=== PATIENT | female | born 1970 | race Caucasian/White ===

== ENCOUNTER → 2016-05-16 | Outpatient (CLI) | payer OTHER ==
--- NOTE | 2016-05-16 12:33 | CT ---
CT of the lower extremity, pelvis and bilateral femurs Without Contrast With Multiplanar Reconstructi ons at 1025 hours History: Left hip pain. Osteoarthritis, M16.12. Comparison: None. Technique: Noncontrast axial computed tomographic images of the pelvis and bilateral femurs with sagi ttal, coronal, and multiplanar reconstructions. Dose reduction techniques were utilized. Findings: Severe osteoarthritis in the left hip joints with severe superior joint space narrowing, garcia bchondral sclerosis of the acetabula and superior femoral head region, and cystic erosions of the ant erosuperior acetabular region. No evidence of acute fracture. Previous right total hip arthroplasty. Sclerosis and hypertrophic changes in bilateral sacroiliac jose nts. Slight bilateral patellar lateral tilt. IUD in the uterus. No definite adnexal masses or significant pelvic adenopathy. Impression: 1. Severe osteoarthritis left hip. 2. Previous right total hip arthroplasty. 3. 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
== END ==
LOC: FIMAGING 10:07
PROVIDERS: ATTEND Orthopaedic Surgery
DX: M16.12 Unilateral primary osteoarthritis, left hip (principal); Z96.641 Presence of right artificial hip joint

== ENCOUNTER 2016-05-30 06:05 | Inpatient (IN) | payer OTHER ==
[2016-05-16 11:15] LABS: % IMMATURE GRANULYOCYTES 0.3 % (0.0-1.1); ABSOLUTE IMMATURE GRANULOCYTES 0.02 10^3/uL (0.00-0.10); ADD DIFF? NO; ADD MORPH? NO; ADD SCAN? NO; ATYPICAL LYMPHOCYTE FLAG 30 (0-99); FRAGMENT RBC FLAG 0 (0-99); HEMATOCRIT 38.1 % (38.0-47.0); HEMOGLOBIN 13.1 g/dL (12.6-16.3); LEFT SHIFT FLG 0 (0-99); LIPEMIA HEMOLYSIS FLAG 90 (0-99); MEAN CELL HEMOGLOBIN 32.3 pg (27.9-34.1); MEAN CELL HEMOGLOBIN CONCENTR. 34.4 g/dL (32.4-36.7); MEAN CELL VOLUME 94.1 fL (81.5-99.8); PLATELET CLUMPS FLAG 0 (0-99); PLATELET COUNT 280 10^3/uL (150-400); RED BLOOD CELL COUNT 4.05 10^6/uL (4.18-5.33); RED CELL DISTRIBUTION WIDTH 12.4 % (11.5-15.2)
[~2016-05-30 06:05] MED LIST: ACETAMINOPHEN 325 MG TAB PO ONE; CEFAZOLIN 2 GM/DEXTR 100 ML IV ONE; CHLORHEXIDINE GLUC HIBICLENS 118 ML BTL TP ONE; DEXAMETHASONE 4 MG/ML VIAL IVP ONE; FAMOTIDINE 20 MG TAB PO ONE; ROPI/epiNEPH/KETOROLAC JOINT COCKTAIL IU ONE; TRANEXAMIC ACID 3,000 MG in NS 50 ML IRR ONE
[2016-05-30] MEDS ORDERED: LR 1,000 ML IV ONE (06:53)
[2016-05-30] MEDS ORDERED: LIDOCAINE 1% 5 ML SDV ID PRN (06:53)
[2016-05-30] MEDS ORDERED: SKIN ADHESIVE (DERMABOND) 1 EACH TP ONE (06:59)
[2016-05-30] MEDS ORDERED: TRANEXAMIC ACID 3,000 MG/50 ML BAG IRR ONE (07:00)
[2016-05-30] MEDS ORDERED: ONDANSETRON 4 MG/2 ML VIAL ONE (07:49)
[2016-05-30] MEDS ORDERED: LIDOCAINE 2% 5 ML SDV ONE (07:49)
[2016-05-30] MEDS ORDERED: DEXAMETHASONE 4 MG/ML VIAL ONE (07:49)
[2016-05-30] MEDS ORDERED: PROPOFOL/EMULSION 500 MG/50 ML BOTTLE IV ONE (07:50)
[2016-05-30] MEDS ORDERED: MIDAZOLAM 2 MG/2 ML VIAL ONE ×2 (07:54→09:47)
[2016-05-30] MEDS ORDERED: fentaNYL 100 MCG/2 ML INJ ONE ×3 (08:25→10:42)
[2016-05-30] MEDS ORDERED: PROPOFOL 200 MG/20 ML VIAL ONE (09:08)
[2016-05-30] MEDS ORDERED: MAGNESIUM HYDROXIDE 30 ML UDCUP PO PRN (09:35)
[2016-05-30] MEDS ORDERED: POLYETHYLENE GLYCOL 3350 17 GM PKT PO PRN (09:35)
[2016-05-30] MEDS ORDERED: TEMAZEPAM 15 MG CAP PO PRN (09:35)
[2016-05-30] MEDS ORDERED: ONDANSETRON 4 MG/2 ML VIAL IVP PRN (09:35)
[2016-05-30] MEDS ORDERED: PHARMACY PAIN CONSULT 1 EA MISC PRN (09:35)
[2016-05-30] MEDS ORDERED: diphenhydrAMINE 25 MG CAP PO PRN (09:35)
[2016-05-30] MEDS ORDERED: PROMETHAZINE HCL 25 MG SUPPR PR PRN (09:35)
[2016-05-30] MEDS ORDERED: LACTULOSE 20 GM/30 ML UDCUP PO PRN (09:35)
[2016-05-30] MEDS ORDERED: BISACODYL 10 MG SUPP PR PRN (09:35)
[2016-05-30] MEDS ORDERED: PROMETHAZINE HCL 25 MG/ML INJ IVP PRN (09:35)
[2016-05-30] MEDS ORDERED: DIPHENOXYLATE/ATROPINE LOMOTIL 1 TAB PO PRN (09:35)
[2016-05-30] MEDS ORDERED: ONDANSETRON DISINTEGRATING 4 MG TAB PO PRN (09:35)
--- NOTE | 2016-05-30 09:35 | POSTOPPROG ---
Post Op Note Date of Operation: 05/30/16 Surgeon: Mary Lou Samson Ice Cream Scooper: oscar samson Anesthesiologist: dr. bardales Anesthesia: Spinal Pre-op Diagnosis: left hip OA Post-op Diagnosis: same Indication: left hip pain due to OA that failed conservative measuers Procedure: L RENE ant approach, robot assist Findings: severe hip OA Inf/Abcess present in the surg proc area at time of surgery?: No EBL: 100-500
[2016-05-30] MEDS ORDERED: oxyCODONE IR 5 MG TAB ONE ×2 (09:47→10:42)
[2016-05-30] MEDS ORDERED: HYDROmorphONE/DILAUDID 1 MG/ML SYR ONE (09:47)
[2016-05-30] MEDS ORDERED: LR 1,000 ML IV SCH (10:00)
--- NOTE | 2016-05-30 10:47 | DX ---
AP Pelvis. Reason for examination: Postoperative follow up left hip arthroplasty. Comparison to the prior study August 11, 2014. Findings: Postoperative changes of recent total left hip arthroplasty are noted. The bone alignment i s satisfactory and no complicating process is seen. Stable appearance of the previous right hip arthr oplasty. Incidentally, an IUD is in place. Impression: Recent total left hip arthroplasty.
[2016-05-30] MEDS: ACETAMINOPHEN 325 MG TAB PO SCH ×3 (12:32→23:09)
[2016-05-30] MEDS: CYCLOBENZAPRINE 10 MG TAB PO PRN ×2 (12:40→19:45)
[2016-05-30] MEDS: oxyCODONE IR 5 MG TAB PO PRN ×4 (14:00→23:07)
[2016-05-30] MEDS ORDERED: ceFAZolin 2 GM/DEXTROSE 100 ML IV SCH (14:00)
[2016-05-30] MEDS: ceFAZolin 2 GM in D5W 100 ML IV SCH ×2 (15:13→22:19)
--- NOTE | 2016-05-30 17:25 | DX ---
Intraoperative fluoroscopy during left hip surgery. May 30, 2016. Discussion: 3.1 seconds of intraoperative fluoroscopy utilized by Dr. Linder during left hip surge ry. AP matrix radiograph of the left hip demonstrates a left hip arthroplasty in progress. Impression: 1. Intraoperative fluoroscopy during left hip arthroplasty.
[2016-05-30] MEDS: SENNOSIDES/DOCUSATE SODIUM TAB PO SCH (19:45)
[2016-05-30] MEDS: ASPIRIN 325 MG TAB PO SCH (19:45)
[2016-05-30] MEDS: FAMOTIDINE 20 MG TAB PO SCH (19:46)
[2016-05-31] MEDS: oxyCODONE IR 5 MG TAB PO PRN ×4 (01:59→10:53)
[2016-05-31 04:48] LABS: HEMATOCRIT 34.2 % (38.0-47.0); HEMOGLOBIN 11.7 g/dL (12.6-16.3)
[2016-05-31] MEDS: CYCLOBENZAPRINE 10 MG TAB PO PRN (04:53)
[2016-05-31] MEDS: ACETAMINOPHEN 325 MG TAB PO SCH (04:53)
--- NOTE | 2016-05-31 05:21 | GOP ---
[f rep st] OPERATIVE REPORT DATE OF OPERATION: 05/30/2016 SURGEON: Murphy Linder MD SALES REPRESENTATIVE METALS: PEDRO Marin. ANESTHESIA: Spinal. PREOPERATIVE DIAGNOSIS: Left hip osteoarthritis. POSTOPERATIVE DIAGNOSIS: Left hip osteoarthritis. PROCEDURE PERFORMED: Left total hip arthroplasty. FINDINGS: ESTIMATED BLOOD LOSS: 200 cc. INDICATIONS: The patient has progressively worsening arthritis of the hip which has failed medical management. The patient understands the treatment option including continued non-operative care and has selected surgical intervention. The patient has decided to undergo total hip arthroplasty via the direct anterior approach understanding the risks of the procedure including , but not limited to, neurovascular injury, infection, persistent pain, component wear and loosening, deep venous thrombosis, pulmonary embolism, limb length inequality (including dislocation), and intraoperative fractures. DESCRIPTION OF PROCEDURE: After proper identification of the patient including verification and marking the surgical site, the patient was brought to the operating room and placed in the supine position. All bony prominences were well padded. Anesthesia was induced without complication and intravenous prophylactic antibiotics were administered prior to skin incision. After prepping and draping in the usual sterile fashion, attention was drawn to the contralateral pelvis for attachment of the computer navigation tracker. Three percutaneous incisions were made over the iliac crest and the pelvic tracker was affixed using threaded 3.5 mm pins yielding excellent fixation. Using computer navigation the patient's leg length and topographical pelvic anatomy was registered without complication. Attention was then drawn to surgical exposure of the hip. An incision was made with a #10 Bard Jairo blade starting 3 cm lateral and 3 cm distal to the anterior superior iliac spine measuring 8 cm to 10 cm and coursing distally toward the greater trochanter. The skin and subcutaneous tissues were divided sharply down the fascia lindy. The fascia lindy was incised in line with the skin incision exposing the underlying tensor fascia lindy muscle. This muscle was bluntly elevated from the fascia and the first extracapsular Cobra retractor was placed laterally at the junction of the superior femoral neck and greater trochanter. The lateral femoral circumflex vessels were identified, cauterized and divided with the Aquamantys bipolar cautery. The deep investing fascia of the TFL was divided to allow proper mobilization of the muscle preventing damage during retraction. The reflected head of the rectus femoris muscle was elevated off the anterior hip capsule and a medial Cobra retractor was placed just proximal to the lesser trochanter. The anterior capsulotomy was made sharply from the superolateral acetabulum to the saddle junction of the superior femoral neck and greater trochanter, then coursing inferomedial towards the lesser trochanter. The retractors were then placed in the intracapsular position for femoral neck osteotomy. Corresponding to preoperative templating the osteotomy was made with the oscillating saw protecting the greater trochanter and soft tissues. The femoral head was removed from the acetabulum with a corkscrew and confirmed to be severely arthritic with exposed bone, deformity and osteophytes. Similar finding were confirmed in the acetabulum. The Arch table extension was then placed in 40 degrees external rotation. Attention was then drawn to the acetabular preparation. After placement of the anterior and posterior Cobra retractors outside the labrum and intrascapular the circumferential labrum was removed sharply. The foveal contents were then removed and hemostasis obtained with cautery. The anatomy of the acetabulum was then registered using computer navigation. The first reamer selected was sized using the removed femoral head. Reaming began with robotic assist at 40 degrees of abduction and 20 degrees of anteversion using computer navigation. Reaming ceased 0 mm less than the definitive acetabular component. The final acetabular component was inserted using the computer to achieve proper orientation yielding excellent purchase and stability in the acetabulum. The final acetabular liner was then placed and its seating confirmed. Attention was then turned to the femur. The Arch table extension was placed in extension and adduction delivering the osteotomized femoral neck into the wound. A 2-pronged femoral elevator was placed at the calcar and another at the tip of the greater trochanter. The posterolateral capsule was released with cautery allowing mobilization of the femur lateral and anterior for preparation. The external rotators were visualized and preserved. A curette and rongeur were used to open the starting point for broaching. Serial broaching started with the #0 broach and ended with the broach that exhibited excellent fit in the proximal femur. A change in pitch during mallet strikes was accompanied by the inability to advance the broach any further. The trial reduction was performed and fluoroscopic navigation was utilized to check limb length. Adjustments were made to equalize limb length accordingly. After the final trials were accepted they were removed and the wound was copiously lavaged. The femoral component was seated to the same depth as the final broach and the femoral head was impacted onto the clean trunnion. The hip was then reduced for the final time and once more fluoroscopic navigation used to check that limb length equality was achieved. The wound was irrigated and closed in layers, the fascia lindy with 2-0 Quill, the subcutaneous tissue with a 2-0 Quill, and the skin with Dermabond, including the small incisions for computer navigation. Sterile dressings were applied. Final sharps and sponge counts were accurate. The patient was then transferred to a hospital bed and brought to the recovery room in stable condition. IMPLANTS: Accolade II size 5 x 127, acetabular component, 54 mm Tritanium. The liner is a Trident X3 32 mm. The head is a Biolox Delta 32 mm -4. /[id number]/MODL MTDD
[2016-05-31 07:23] VITALS: BP 106/49; PULSE 53; RESP 14; TEMP 97.9
[2016-05-31] MEDS: FAMOTIDINE 20 MG TAB PO SCH (08:05)
[2016-05-31] MEDS: SENNOSIDES/DOCUSATE SODIUM TAB PO SCH (08:05)
[2016-05-31] MEDS: ASPIRIN 325 MG TAB PO SCH (08:05)
[2016-05-31] MEDS ORDERED: FLUoxetine 20 MG CAP PO SCH (09:00)
--- NOTE | 2016-05-31 09:21 | SOAPPROG ---
SOAP Progress Note Assessment/Plan: Assessment: Patient is doing well POD 1 s/p L RENE 1.Pain management: pain is well controlled on oral pain meds 2.Anemia: level is expected initially postop. Asymptomatic. Cont to monitor for symptoms 3.VTE ppx: recommend aspirin 325mg daily. Cont JUDY kaleb and SCD 4. d/c planning: d/c to home today pending release from PT. 5. muscle spasms: flexeril script sent to patient's pharmacy. 6. postop urinary retention: resolved today. Plan: 05/31/16 09:20 Subjective: Maddison is doing well this morning. denies SOB, chest pain and N/V. states flexeril worked well for her and would like a script. Objective: Vital Signs Temp Pulse Resp BP Pulse Ox 36.6 C 53 L 14 106/49 L 97 05/31/16 07:22 05/31/16 07:22 05/31/16 07:22 05/31/16 07:22 05/31/16 07:22 Laboratory Results 05/31/16 04:20 05/30/16 05/31/16 06/01/16 05:59 05:59 05:59 Intake Total 3965 Output Total 3880 700 Balance 85 -700 LLE: incision dressing is clean and dry, NVI, +pf/df ICD10 Worksheet Patient Problems: Problems Problem Status Diagnosed Primary localized osteoarthritis of left hip Acute Osteoarthritis of hip Acute
[2016-05-31 12:00] VITALS: O2SAT 98
--- NOTE | 2016-05-31 12:12 | GDS ---
[f rep st] DISCHARGE SUMMARY ADMISSION DIAGNOSIS: Left hip osteoarthritis. DISCHARGE DIAGNOSIS: Left hip osteoarthritis. PROCEDURE: Left total hip arthroplasty, robot assisted. VTE PROPHYLAXIS: Aspirin recommended for 3 weeks daily. BRIEF DESCRIPTION OF HOSPITAL STAY: Patient was admitted for an elective joint arthroplasty. The pa kenroynt tolerated the procedure well and has passed physical therapy. The patient was given appropriat e antibiotic prophylaxis and venous thromboembolism prophylaxis. The patient's pain was well control led on oral pain medication, patient was holding down food, and had urinated. Decision was made to d ischarge the patient. The patient was given post-operative prescriptions pre-operatively. PLANS: Please follow up as scheduled at Dr. Linder's office on June 21 at 9:30 a.m. /[id number]/MODL
== END 2016-05-31 11:23 | disposition home or self-care (01) | DRG 470 ==
LOC: F3N 06:05
PROVIDERS: ADMIT Orthopaedic Surgery; ATTEND Orthopaedic Surgery
PROC: 0SRB04Z Replacement of Left Hip Joint with Ceramic on Polyethylene Synthetic Substitute, Open Approach (ICD-10-PCS; principal; 2016-05-30 08:15)
PROC: 8E0Y0CZ Robotic Assisted Procedure of Lower Extremity, Open Approach (ICD-10-PCS; principal; 2016-05-30 08:15)
DX: M16.12 Unilateral primary osteoarthritis, left hip (principal); R33.9 Retention of urine, unspecified
CPT/HCPCS: 97110-GP; 97116-GP; 97161-GP; 97165-GO; J0171; J0690; J1100; J1170; J1885; J2250; J2405; J2704; J2795; J3010